=== PATIENT | male | born 1980 | race African-American/Black ===

== ENCOUNTER 2020-03-11 14:57 | Emergency (ER) | payer OTHER ==
--- NOTE | 2020-03-11 15:05 | PDOC ---
Rapid Medical Evaluation Time Seen by Provider: 03/11/20 15:00 Medical Evaluation: Allergies Allergy/AdvReac Type Severity Reaction Status Date / Time No Known Allergies Allergy Verified 03/11/20 15:00 03/11/20 15:01 CC:was told by his girlfriend has urea plasma and needs to be treated, he has no complaints Exam: vss, no penile discharge Plan: ua, ucx Discharge Disposition - Diagnosis Abnormal urine - Referrals - Patient Instructions - Post Discharge Activity
[2020-03-11 15:06] VITALS: BP 141/58; PULSE 94; TEMP 97.8; BMI 28.8
[2020-03-11] MEDS ORDERED: AZITHROMYCIN 500 MG TABLET PO ONE (15:49)
[2020-03-11] MEDS ORDERED: DOXYCYCLINE HYCLATE 100 MG CAPSULE PO ONE ×2 (15:54→16:12)
--- NOTE | 2020-03-11 15:59 | PDOC ---
History of Present Illness - General Stated Complaint: PAIN Time Seen by Provider: 03/11/20 15:00 History Source: Patient Exam Limitations: Clinical Condition - History of Present Illness Travel History: No Initial Comments: 03/11/20 15:59 Patient with no significant past medical history present for evaluation and treatment of ureaplasma on partners urine lab result. Patient reported has no symptoms wants to be treated empirically as partner was treated by her PODIATRIST ASSISTANT. Denies penile discharge, irritation, dysuria, burning urination or urinary urgency. Denies any other symptoms Timing/Duration: reports: intermittent Pain Radiation: reports: no radiation Aggravating Factors: improves with: None Alleviating Factors: improves with: None Past History - Medical History Allergies/Adverse Reactions: Allergies Allergy/AdvReac Type Severity Reaction Status Date / Time No Known Allergies Allergy Verified 03/11/20 15:00 Home Medications: Ambulatory Orders Doxycycline Hyclate 100 mg PO BID 7 Days #14 capsule 03/11/20 - Psycho-Social/Smoking History Smoking Status: Yes Smoking History: Never smoked Number of Cigarettes Smoked Daily: 1 Information on smoking cessation initiated: No - Substance Abuse Hx (Audit-C & DAST Scrn) How often the patient has a drink containing alcohol: Never Score: In Men: 4 or > Positive; In Women: 3 or > Positive: 0 Screen Result (Pos requires Nsg. Audit-10AR): Negative In the last yr the pt used illegal drug/Rx for NonMed reason: No Score: Yes response is considered Positive: 0 Screen Result (Positive result requires Nsg. DAST-10): Negative Review of Systems - Review of Systems Able to Perform ROS?: Yes Is the patient limited [place]ish proficient: No Constitutional: No: Chills, Fever, Malaise HEENTM: No: Symptoms Reported, See HPI, Eye Pain, Blurred Vision, Tearing, Recent change in vision, Double Vision, Cataracts, Ear Pain, Ocular Prothesis, Ear Discharge, Nose Pain, Nose Congestion, Tinnitus, Nose Bleeding, Hearing Loss, Throat Pain, Throat Swelling, Mouth Pain, Dental Problems, Difficulty Swallowing, Mouth Swelling, Other Respiratory: No: Symptoms reported, See HPI, Cough, Orthopnea, Shortness of Breath, SOB with Exertion, SOB at Rest, Stridor, Wheezing, Productive cough, Hemoptysis, Other Cardiac (ROS): No: Symptoms Reported, See HPI, Chest Pain, Edema, Irregular Heart Rate, Lightheadedness, Palpitations, Syncope, Chest Tightness, Other ABD/GI: No: Symptoms Reported, Nausea, Vomiting : No: Symptoms Reported, Burning, Dysuria, Discharge, Frequency, Pain, Urgency, Testicular Mass, Lesions, Testicular Pain, Other Neurological: No: Symptoms reported All Other Systems: Reviewed and Negative *Physical Exam - Vital Signs Last Vital Signs Temp Pulse Resp BP Pulse Ox 97.8 F 94 H 16 141/58 L 99 03/11/20 15:00 03/11/20 15:00 03/11/20 15:00 03/11/20 15:00 03/11/20 15:00 - Physical Exam General Appearance: Yes: Nourished, Appropriately Dressed. No: Apparent Distress HEENT: positive: Normal ENT Inspection Respiratory/Chest: negative: Respiratory Distress, Accessory Muscle Use Gastrointestinal/Abdominal: positive: Normal Bowel Sounds. negative: Tender, Guarding Male Genitalia: positive: normal genitalia. negative: testicular tenderness, epididymus tender Musculoskeletal: positive: Normal Inspection Extremity: positive: Normal Capillary Refill, Normal Inspection, Normal Range of Motion Integumentary: positive: Normal Color Neurologic: positive: Fully Oriented, Alert, Normal Mood/Affect, Normal Response Medical Decision Making - Medical Decision Making 03/11/20 16:03 Patient with no significant past medical history present for evaluation and tr eatment of ureaplasma on partners urine lab result. Patient reported has no symptoms wants to be treated empirically as partner was treated by her PODIATRIST ASSISTANT. Denies penile discharge, irritation, dysuria, burning urination or urinary urgency. Denies any other symptoms Clinical exam unremarkable. Urine GC and chlamydia tests times. Urine culture sent. Will treat empirically on doxycycline 100 mg twice daily for a week pending lab results with follow-up with PCP. Patient stable for discharge. First dose of doxycycline given in the ED prior to discharge Discharge - Discharge Information Problems reviewed: Yes Clinical Impression/Diagnosis: Abnormal urine, Sexually transmitted disease (STD) Condition: Stable Disposition: HOME - Admission No - Additional Discharge Information Prescriptions: Doxycycline Hyclate 100 mg PO BID 7 Days #14 capsule - Follow up/Referral - Patient Discharge Instructions Patient Printed Discharge Instructions: How to Detect and Treat STDs Additional Instructions: You are being treated empirically for Ureaplasma management. You will be contacted in a few days with urine lab result. Follow-up with your primary care as needed. Make sure you have finished prescribed antibiotics. No unprotected sex for at least 4 weeks or until negative results - Post Discharge Activity
== END 2020-03-11 16:19 | disposition home or self-care (01) ==
LOC: JERFT 14:57
DX: R82.90 Unspecified abnormal findings in urine (principal); A64 Unspecified sexually transmitted disease
CPT/HCPCS: 36415; 87086; 87491; 87591; 99283-25